=== PATIENT | female | born 1965 | race Two or more races ===

== ENCOUNTER 2023-12-26 11:29 | Emergency (ER) | payer OTHER ==
[~2023-12-26] VITALS: Ht 165.1 cm; Wt 64.4 kg
[2023-12-26] MEDS ORDERED: RELAFEN DS1000 MG (12:14)
[2023-12-26] MEDS ORDERED: GRALISE600 MG (12:15)
[2023-12-26] MEDS ORDERED: LEVOTHYROXINE125 MC1 (12:15)
[2023-12-26] MEDS ORDERED: ENALAPRIL MALEA10 MG (12:16)
[2023-12-26] MEDS ORDERED: MORPHINE SULFATE 4 MG/ML CARTRIDGE IV ONE (12:30)
== END 2023-12-26 14:55 | disposition home or self-care (01) ==
LOC: ER 11:29
DX: M54.2 Cervicalgia (principal); E03.9 Hypothyroidism, unspecified; Z91.041 Radiographic dye allergy status

== ENCOUNTER 2024-12-26 16:39 | Emergency (ER) | payer OTHER ==
[~2024-12-26] VITALS: Ht 162.6 cm; Wt 68.0 kg
[~2024-12-26 16:39] MED LIST: ENALAPRIL MALEA10 MG; GRALISE600 MG; LEVOTHYROXINE125 MC1; RELAFEN DS1000 MG
[2024-12-26] MEDS ORDERED: ORPHENADRINE CITRATE 30 MG/ML AMPUL IM STA (17:48)
[2024-12-26] MEDS ORDERED: ORPHENADRINE CITRATE 30 MG/ML AMPUL ONE (18:01)
== END 2024-12-26 18:16 | disposition home or self-care (01) ==
LOC: ER 16:39
DX: M79.605 Pain in left leg (principal); Z88.8 Allergy status to other drugs, medicaments and biological substances; Z91.013 Allergy to seafood

== ENCOUNTER 2025-07-28 12:04 | Emergency (ER) | payer OTHER ==
[~2025-07-28] VITALS: Ht 165.1 cm; Wt 72.6 kg
[2025-07-28] MEDS ORDERED: ANTIDEPRESIVO (12:34)
[2025-07-28] MEDS ORDERED: KETOROLAC TROMETHAMINE 30 MG VIAL IM ONE (14:00)
== END 2025-07-28 15:12 | disposition home or self-care (01) ==
LOC: ER 12:04
DX: G89.11 Acute pain due to trauma (principal); M79.605 Pain in left leg; M54.2 Cervicalgia; I10 Essential (primary) hypertension; E03.8 Other specified hypothyroidism; Z91.013 Allergy to seafood; Z91.041 Radiographic dye allergy status